=== PATIENT | male | born 1965 | race Caucasian/White ===

== ENCOUNTER → 2022-03-15 | Outpatient (REF) | payer OTHER | LOC: M SFHCDERM 17:29 | PROVIDERS: ATTEND Nurse Practitioner Family | DX: C44.202 Unspecified malignant neoplasm of skin of right ear and external auricular canal (principal) ==

== ENCOUNTER → 2022-06-18 | Outpatient (REF) | payer OTHER | LOC: M SFHCDERM 13:36 | PROVIDERS: ATTEND Nurse Practitioner Family | DX: T14.90XD Injury, unspecified, subsequent encounter (principal) ==

== ENCOUNTER → 2022-08-06 | Outpatient (RCR) | payer OTHER | LOC: M PT 07-16 12:55 | PROVIDERS: ATTEND Podiatrist | DX: M76.60 Achilles tendinitis, unspecified leg (principal) ==

== ENCOUNTER 2022-08-13 07:48 | Outpatient (RCR) | payer OTHER | END 2022-09-05 | LOC: M PT 07:48 | PROVIDERS: ATTEND Podiatrist | DX: M76.60 Achilles tendinitis, unspecified leg (principal) ==

== ENCOUNTER 2022-09-24 07:51 | Outpatient (RCR) | payer OTHER | END 2022-10-06 | LOC: M PT 07:51 | PROVIDERS: ATTEND Nurse Practitioner Family | DX: M54.50 Low back pain, unspecified (principal) ==

== ENCOUNTER 2022-10-15 12:28 | Outpatient (RCR) | payer OTHER | END 2022-11-05 | LOC: M PT 12:28 | PROVIDERS: ATTEND Nurse Practitioner Family | DX: M54.50 Low back pain, unspecified (principal) ==

== ENCOUNTER 2022-11-26 09:39 | Outpatient (RCR) | payer OTHER | END 2022-12-06 | LOC: M PT 09:39 | PROVIDERS: ATTEND Nurse Practitioner Family | DX: M54.50 Low back pain, unspecified (principal) ==

== ENCOUNTER 2022-12-24 09:04 | Outpatient (RCR) | payer OTHER | END 2023-01-06 | LOC: M PT 09:04 | PROVIDERS: ATTEND Nurse Practitioner Family | DX: M54.50 Low back pain, unspecified (principal) ==

== ENCOUNTER 2023-06-06 10:38 | Day surgery (SDC) | payer OTHER ==
[~2023-06-06] VITALS: Ht 180.3 cm; Wt 113.9 kg
[~2023-06-06 10:38] MED LIST: BUPR150T12 PO; FAMO1TAB11 PO; FLUO-96 PO; GABA-282 PO; LOSA50TA28 PO; NS 1,000 ML IV ONE
[2023-06-06] MEDS ORDERED: propofoL 200 MG/20 ML VIAL As Ordered ONE ×2 (12:48→12:57)
[2023-06-06 13:09] VITALS: TEMP 98.1
[2023-06-06 13:35] VITALS: BP 142/67; O2SAT 95
== END 2023-06-06 17:05 | disposition home or self-care (01) ==
LOC: M OPP 10:38
PROVIDERS: ATTEND Internal Medicine Gastroenterology
DX: Z12.11 Encounter for screening for malignant neoplasm of colon (principal); Z86.010 Personal history of colon polyps; D12.6 Benign neoplasm of colon, unspecified; K64.0 First degree hemorrhoids; K57.30 Diverticulosis of large intestine without perforation or abscess without bleeding; G47.30 Sleep apnea, unspecified; Z99.89 Dependence on other enabling machines and devices; Z79.891 Long term (current) use of opiate analgesic; Z79.899 Other long term (current) drug therapy

== ENCOUNTER 2023-07-05 06:35 | Day surgery (SDC) | payer OTHER ==
[~2023-07-05] VITALS: Ht 180.3 cm; Wt 117.7 kg
[~2023-07-05 06:35] MED LIST changes: +AMIT10TA7 PO; +BUSP5TA PO; -NS 1,000 ML IV ONE
[2023-07-05] MEDS: LIDOCAINE W/EPINEPHRINE 1% 20ML VIAL XX ONE (07:20)
[2023-07-05] MEDS: SODIUM BICARBONATE 8.4% INJ 50MEQ 50ML VIAL XX ONE (07:20)
[2023-07-05] MEDS: BACITRACIN OINTMENT 30GM TUBE As Ordered ONE (08:25)
[2023-07-05 08:55] VITALS: BP 149/73; TEMP 97.9; O2SAT 96
== END 2023-07-05 08:59 | disposition home or self-care (01) ==
LOC: M SDC 06:35
PROVIDERS: ATTEND Orthopaedic Surgery Hand Surgery
DX: G56.01 Carpal tunnel syndrome, right upper limb (principal)

== ENCOUNTER 2023-07-20 04:09 | Emergency (ER) | payer OTHER ==
[~2023-07-20] VITALS: Ht 180.3 cm; Wt 111.3 kg
[2023-07-20 05:09] LABS: BASO # 0.1 10^3/uL (0.0-0.2); BASO % 0.5 % (0.0-1.0); EOS # 0.3 10^3/uL (0.0-0.5); EOS % 2.6 % (0.0-3.0); HEMATOCRIT 41.1 % (42.0-52.0); HEMOGLOBIN 14.5 g/dl (13.5-17.5); LYMPH # 2.2 10^3/uL (1.5-5.0); LYMPH % 17.6 % (24.0-44.0); MEAN CORPUSCULAR HEMOGLOBIN 30.7 pg (27.0-33.0); MEAN CORPUSCULAR HGB CONC 35.3 g/dl (32.0-36.5); MEAN CORPUSCULAR VOLUME 87.1 fl (80.0-96.0); MONO # 1.8 10^3/uL (0.0-0.8); MONO % 14.8 % (2.0-8.0); NEUTROPHILS % 64.2 % (36.0-66.0); PLATELET COUNT, AUTOMATED 278 10^3/uL (150-450); RED BLOOD COUNT 4.72 10^6/uL (4.30-6.10); WHITE BLOOD COUNT 12.4 10^3/uL (4.0-10.0)
[2023-07-20 05:37] LABS: BLOOD UREA NITROGEN 11 MG/DL (9-23); CALCIUM LEVEL 8.7 MG/DL (8.5-10.1); CARBON DIOXIDE LEVEL 26 MMOL/L (20-31); CHLORIDE LEVEL 101 MMOL/L (98-107); GLOMERULAR FILTRATION RATE > 60.0 (>56); GLUCOSE, FASTING 125 MG/DL (60-100); SODIUM LEVEL 136 MMOL/L (136-145)
[2023-07-20 05:41] LABS: URIC ACID 6.5 MG/DL (3.7-9.2)
[2023-07-20] MEDS: CEPHALEXIN 500 MG CAP PO ONE (07:05)
[2023-07-20 07:48] LABS: ERYTHROCYTE SEDIMENTATION RATE 43 mm/hr (0-20)
[2023-07-20] MEDS: NAPROXEN 250 MG TAB PO ONE (07:56)
[2023-07-20] MEDS ORDERED: NAPR-837 PO (09:08)
[2023-07-20] MEDS ORDERED: CEPH500C PO (09:08)
[2023-07-20 09:20] VITALS: BP 147/82; TEMP 98.5; O2SAT 95
== END 2023-07-20 09:27 | disposition home or self-care (01) ==
LOC: M ED 04:09
DX: L03.116 Cellulitis of left lower limb (principal); I10 Essential (primary) hypertension; K21.9 Gastro-esophageal reflux disease without esophagitis; F41.9 Anxiety disorder, unspecified; F32.A Depression, unspecified; F12.10 Cannabis abuse, uncomplicated; Z79.899 Other long term (current) drug therapy

== ENCOUNTER 2023-07-22 04:32 | Emergency (ER) | payer OTHER ==
[~2023-07-22] VITALS: Ht 180.3 cm; Wt 117.5 kg
[~2023-07-22 04:32] MED LIST changes: +CEPH500C PO; +NAPR-837 PO
[2023-07-22 06:10] VITALS: BP 172/82; TEMP 96.8; O2SAT 97
== END 2023-07-22 06:12 | disposition home or self-care (01) ==
LOC: M ED 04:32
DX: L03.116 Cellulitis of left lower limb (principal); I10 Essential (primary) hypertension; G47.33 Obstructive sleep apnea (adult) (pediatric); K21.9 Gastro-esophageal reflux disease without esophagitis; F32.A Depression, unspecified; F41.9 Anxiety disorder, unspecified; Z79.899 Other long term (current) drug therapy

== ENCOUNTER → 2024-02-07 | Outpatient (CLI) | payer OTHER ==
[~2024-02-07] MED LIST changes: +GABA-1172 PO; -GABA-282 PO
== END ==
LOC: M SOG 08:58
PROVIDERS: ATTEND Physician Assistant
DX: G56.01 Carpal tunnel syndrome, right upper limb (principal)

== ENCOUNTER → 2024-03-19 | Outpatient (REF) | LOC: M PLAIMG 13:01 | PROVIDERS: ATTEND Nurse Practitioner Family | DX: Z00.00 Encounter for general adult medical examination without abnormal findings (principal) ==

== ENCOUNTER → 2024-11-14 | Outpatient (CLI) | payer OTHER ==
[~2024-11-14] MED LIST changes: +AMIT10TA11 PO; -AMIT10TA7 PO
== END ==
LOC: M SLEEP 20:00
PROVIDERS: ATTEND Registered Nurse
DX: G47.33 Obstructive sleep apnea (adult) (pediatric) (principal)